=== PATIENT | male | born 1955 | race Caucasian/White ===

== ENCOUNTER 2021-05-29 10:26 | Inpatient (IN) | payer MEDICARE, MEDICAID ==
[2021-05-29 12:10] LABS: CORONAVIRUS COVID-19 NAA POSITIVE (NEGATIVE)
[2021-05-29 14:42] LABS: ANION GAP 17.8 mEq/L (7-13)
[2021-05-29] MEDS ORDERED: Polyethylene Glycol 3350 Powder 17 GM Packet PO PRN (16:16)
[2021-05-29] MEDS ORDERED: Ondansetron 4 MG/2 ML SDV IVPUSH PRN (16:16)
[2021-05-29] MEDS ORDERED: Acetaminophen/oxyCODONE 325-5 MG Tab PO PRN (16:16)
[2021-05-29] MEDS ORDERED: Docusate Sodium 100 MG Cap PO PRN (16:16)
[2021-05-29] MEDS ORDERED: Acetaminophen 325 MG Tab PO PRN (16:16)
[2021-05-29] MEDS ORDERED: Albuterol/Ipratropium 3.0-0.5 MG/3 ML Neb Soln NEB PRN (16:16)
[2021-05-29] MEDS ORDERED: HYDROmorphone 0.5 MG/0.5 ML Syringe IVPUSH PRN (16:16)
[2021-05-29] MEDS ORDERED: guaiFENesin/Dextromethorphan 100-10 MG/5 ML Soln 5 ML Cup PO PRN (16:27)
[2021-05-29] MEDS ORDERED: Sodium Chloride 0.9% 1,000 ML IV SCH (16:30)
[2021-05-29] MEDS ORDERED: 50% Dextrose in Water 50 ML Syringe IVPUSH PRN (16:31)
[2021-05-29] MEDS ORDERED: Glucagon,Human Recombinant 1 MG Vial IM PRN (16:31)
[2021-05-29] MEDS: cefTRIAXone 1 GM in Sodium Chloride 0.9% 50 ML IV SCH (16:39)
[2021-05-29] MEDS: Insulin Lispro 100 Units/ML 3 ML Vial SUBCUT SCH (17:33)
[2021-05-29] MEDS: Azithromycin 500 MG in Sodium Chloride 0.9% 250 ML IV SCH (17:53)
[2021-05-29] MEDS ORDERED: Haloperidol Lactate 5 MG/ML SDV IVPUSH PRN (17:55)
[2021-05-29] MEDS: traZODone 50 MG Tab PO PRN (19:19)
[2021-05-29] MEDS ORDERED: Sodium Chloride 0.9% 500 ML IV SCH (22:15)
[2021-05-29] MEDS: Dexamethasone 4 MG/ML SDV IVPUSH SCH (22:26)
[2021-05-29] MEDS: Enoxaparin 40 MG/0.4 ML Syringe SUBCUT SCH (22:26)
[2021-05-30 07:06] LABS: ANION GAP 14.6 mEq/L (7-13); CHLORIDE,CL 98 mmol/L (98-107); SODIUM,NA 133 mmol/L (136-145)
[2021-05-30] MEDS: Sertraline 50 MG Tab PO SCH (09:12)
[2021-05-30] MEDS: Dexamethasone 4 MG/ML SDV IVPUSH SCH ×2 (09:13→20:46)
[2021-05-30] MEDS: Enoxaparin 40 MG/0.4 ML Syringe SUBCUT SCH ×2 (09:17→20:46)
[2021-05-30] MEDS: Insulin Lispro 100 Units/ML 3 ML Vial SUBCUT SCH ×3 (12:14→17:13)
[2021-05-30] MEDS: cefTRIAXone 1 GM in Sodium Chloride 0.9% 50 ML IV SCH (16:08)
[2021-05-30] MEDS: Azithromycin 500 MG in Sodium Chloride 0.9% 250 ML IV SCH (17:24)
[2021-05-30] MEDS: traZODone 50 MG Tab PO PRN (20:46)
[2021-05-30] MEDS: Haloperidol Lactate 5 MG/ML SDV IVPUSH PRN (22:38)
[2021-05-31 06:53] LABS: CHLORIDE,CL 98 mmol/L (98-107); SODIUM,NA 132 mmol/L (136-145)
[2021-05-31] MEDS: Insulin Lispro 100 Units/ML 3 ML Vial SUBCUT SCH ×3 (09:23→16:46)
[2021-05-31] MEDS: Dexamethasone 4 MG/ML SDV IVPUSH SCH ×2 (09:29→21:10)
[2021-05-31] MEDS: Sertraline 50 MG Tab PO SCH (09:29)
[2021-05-31] MEDS: Enoxaparin 40 MG/0.4 ML Syringe SUBCUT SCH ×2 (09:29→21:09)
[2021-05-31] MEDS: cefTRIAXone 1 GM in Sodium Chloride 0.9% 50 ML IV SCH (16:37)
[2021-05-31] MEDS: Azithromycin 500 MG in Sodium Chloride 0.9% 250 ML IV SCH (17:21)
[2021-05-31] MEDS: Haloperidol Lactate 5 MG/ML SDV IVPUSH PRN (21:10)
[2021-05-31] MEDS: traZODone 50 MG Tab PO PRN (21:10)
[2021-06-01 07:01] LABS: ANION GAP 11.4 mEq/L (7-13); CHLORIDE,CL 101 mmol/L (98-107); SODIUM,NA 136 mmol/L (136-145)
[2021-06-01] MEDS: Insulin Lispro 100 Units/ML 3 ML Vial SUBCUT SCH ×3 (09:56→17:03)
[2021-06-01] MEDS: Enoxaparin 40 MG/0.4 ML Syringe SUBCUT SCH ×2 (09:57→20:27)
[2021-06-01] MEDS: Sertraline 50 MG Tab PO SCH (09:59)
[2021-06-01] MEDS: Dexamethasone 4 MG/ML SDV IVPUSH SCH ×2 (09:59→20:26)
[2021-06-01] MEDS: Haloperidol Lactate 5 MG/ML SDV IVPUSH PRN (16:04)
[2021-06-01] MEDS: cefTRIAXone 1 GM in Sodium Chloride 0.9% 50 ML IV SCH (17:07)
[2021-06-01] MEDS: Azithromycin 500 MG in Sodium Chloride 0.9% 250 ML IV SCH (18:01)
[2021-06-01] MEDS: QUEtiapine 25 MG Tab PO SCH (20:26)
[2021-06-01] MEDS: traZODone 50 MG Tab PO PRN (20:26)
[2021-06-02 07:08] LABS: ANION GAP 11.9 mEq/L (7-13); CHLORIDE,CL 100 mmol/L (98-107); SODIUM,NA 140 mmol/L (136-145)
[2021-06-02] MEDS: Dexamethasone 4 MG/ML SDV IVPUSH SCH (08:23)
[2021-06-02] MEDS: Sertraline 50 MG Tab PO SCH (08:28)
[2021-06-02] MEDS: Enoxaparin 40 MG/0.4 ML Syringe SUBCUT SCH (08:30)
[2021-06-02] MEDS ORDERED: Cholecalciferol (Vitamin D3) 25 MCG Tab PO ONE (10:19)
[2021-06-02] MEDS: Insulin Lispro 100 Units/ML 3 ML Vial SUBCUT SCH ×3 (10:32→17:00)
[2021-06-02] MEDS: Haloperidol Lactate 5 MG/ML SDV IVPUSH PRN (15:05)
[2021-06-02] MEDS: cefTRIAXone 1 GM in Sodium Chloride 0.9% 50 ML IV SCH (15:58)
[2021-06-02] MEDS: Azithromycin 500 MG in Sodium Chloride 0.9% 250 ML IV SCH (16:33)
[2021-06-02] MEDS: QUEtiapine 25 MG Tab PO SCH (21:16)
[2021-06-03] MEDS: Insulin Lispro 100 Units/ML 3 ML Vial SUBCUT SCH ×3 (08:36→17:04)
[2021-06-03] MEDS: Dexamethasone 6 MG TABLET PO SCH (08:41)
[2021-06-03] MEDS: Sertraline 50 MG Tab PO SCH (08:41)
[2021-06-03] MEDS: Enoxaparin 40 MG/0.4 ML Syringe SUBCUT SCH (08:42)
[2021-06-03] MEDS: Haloperidol Lactate 5 MG/ML SDV IVPUSH PRN (16:41)
[2021-06-03] MEDS: cefTRIAXone 1 GM in Sodium Chloride 0.9% 50 ML IV SCH (16:44)
[2021-06-03] MEDS: Azithromycin 500 MG in Sodium Chloride 0.9% 250 ML IV SCH (17:25)
[2021-06-03] MEDS: QUEtiapine 25 MG Tab PO SCH (21:44)
[2021-06-03] MEDS: traZODone 50 MG Tab PO PRN (21:44)
[2021-06-04 07:22] LABS: ANION GAP 11.5 mEq/L (7-13); CHLORIDE,CL 106 mmol/L (98-107); SODIUM,NA 142 mmol/L (136-145)
[2021-06-04] MEDS: Sertraline 50 MG Tab PO SCH (08:53)
[2021-06-04] MEDS: Dexamethasone 6 MG TABLET PO SCH (08:53)
[2021-06-04] MEDS: Insulin Lispro 100 Units/ML 3 ML Vial SUBCUT SCH ×3 (08:54→17:06)
[2021-06-04] MEDS: Enoxaparin 40 MG/0.4 ML Syringe SUBCUT SCH (08:54)
[2021-06-04] MEDS: Haloperidol Lactate 5 MG/ML SDV IVPUSH PRN (10:54)
[2021-06-04] MEDS: cefTRIAXone 1 GM in Sodium Chloride 0.9% 50 ML IV SCH (16:21)
[2021-06-04] MEDS ORDERED: Azithromycin 250 MG Tab PO SCH (17:00)
[2021-06-04] MEDS: QUEtiapine 25 MG Tab PO SCH (21:32)
[2021-06-04] MEDS: traZODone 50 MG Tab PO PRN (21:32)
[2021-06-05 07:01] LABS: CHLORIDE,CL 103 mmol/L (98-107); SODIUM,NA 142 mmol/L (136-145)
[2021-06-05] MEDS: Dexamethasone 6 MG TABLET PO SCH (09:17)
[2021-06-05] MEDS: Enoxaparin 40 MG/0.4 ML Syringe SUBCUT SCH (09:17)
[2021-06-05] MEDS: Sertraline 50 MG Tab PO SCH (09:17)
[2021-06-05] MEDS: Insulin Lispro 100 Units/ML 3 ML Vial SUBCUT SCH ×3 (09:18→16:39)
[2021-06-05] MEDS: Haloperidol Lactate 5 MG/ML SDV IVPUSH PRN ×2 (15:04→21:54)
[2021-06-05] MEDS: cefTRIAXone 1 GM in Sodium Chloride 0.9% 50 ML IV SCH (16:38)
[2021-06-05] MEDS ORDERED: REMDESIVIR 200 MG in Sodium Chloride 0.9% 250 ML IV ONE (18:22)
[2021-06-05] MEDS ORDERED: Water For Injection, Sterile 40 ML ONE (18:58)
[2021-06-05] MEDS: QUEtiapine 25 MG Tab PO SCH (20:13)
[2021-06-06 07:09] LABS: ANION GAP 11.1 mEq/L (7-13); CHLORIDE,CL 109 mmol/L (98-107); SODIUM,NA 142 mmol/L (136-145)
[2021-06-06] MEDS ORDERED: Dexamethasone 4 MG/ML SDV IVPUSH SCH (09:00)
[2021-06-06] MEDS: Insulin Lispro 100 Units/ML 3 ML Vial SUBCUT SCH ×3 (09:07→17:00)
[2021-06-06] MEDS: Enoxaparin 40 MG/0.4 ML Syringe SUBCUT SCH (09:29)
[2021-06-06] MEDS: Dexamethasone 6 MG TABLET PO SCH (09:29)
[2021-06-06] MEDS: Sertraline 50 MG Tab PO SCH (09:29)
[2021-06-06] MEDS: Haloperidol Lactate 5 MG/ML SDV IVPUSH PRN (16:11)
[2021-06-06] MEDS: cefTRIAXone 1 GM in Sodium Chloride 0.9% 50 ML IV SCH (16:14)
[2021-06-06] MEDS: REMDESIVIR 100 MG in Sodium Chloride 0.9% 100 ML IV SCH (17:47)
[2021-06-06] MEDS: traZODone 50 MG Tab PO PRN (20:31)
[2021-06-06] MEDS: QUEtiapine 25 MG Tab PO SCH (20:31)
[2021-06-07 07:01] LABS: ANION GAP 9.8 mEq/L (7-13); CHLORIDE,CL 107 mmol/L (98-107); SODIUM,NA 139 mmol/L (136-145)
[2021-06-07] MEDS: Sertraline 50 MG Tab PO SCH (09:27)
[2021-06-07] MEDS: Enoxaparin 40 MG/0.4 ML Syringe SUBCUT SCH (09:27)
[2021-06-07] MEDS: Dexamethasone 6 MG TABLET PO SCH (09:27)
[2021-06-07] MEDS: Insulin Lispro 100 Units/ML 3 ML Vial SUBCUT SCH ×3 (09:28→17:46)
[2021-06-07] MEDS ORDERED: Haloperidol 1 MG Tab PO PRN (10:37)
[2021-06-07] MEDS: cefTRIAXone 1 GM in Sodium Chloride 0.9% 50 ML IV SCH (16:35)
[2021-06-07] MEDS: REMDESIVIR 100 MG in Sodium Chloride 0.9% 100 ML IV SCH (18:27)
[2021-06-07] MEDS: QUEtiapine 25 MG Tab PO SCH (20:01)
[2021-06-07] MEDS: traZODone 50 MG Tab PO PRN (20:01)
[2021-06-08 07:19] LABS: ANION GAP 10.9 mEq/L (7-13); CHLORIDE,CL 105 mmol/L (98-107); SODIUM,NA 137 mmol/L (136-145)
[2021-06-08] MEDS: Enoxaparin 40 MG/0.4 ML Syringe SUBCUT SCH (08:07)
[2021-06-08] MEDS: Sertraline 50 MG Tab PO SCH (08:07)
[2021-06-08] MEDS: Dexamethasone 6 MG TABLET PO SCH (08:07)
[2021-06-08] MEDS: Insulin Lispro 100 Units/ML 3 ML Vial SUBCUT SCH ×3 (08:08→17:38)
[2021-06-08] MEDS ORDERED: REMDESIVIR 100 MG in Sodium Chloride 0.9% 100 ML IV SCH (12:00)
[2021-06-08] MEDS: cefTRIAXone 1 GM in Sodium Chloride 0.9% 50 ML IV SCH (15:58)
[2021-06-08] MEDS: QUEtiapine 25 MG Tab PO SCH (20:19)
[2021-06-08] MEDS: traZODone 50 MG Tab PO PRN (20:19)
[2021-06-09 07:03] LABS: ANION GAP 10.1 mEq/L (7-13); CHLORIDE,CL 104 mmol/L (98-107); SODIUM,NA 136 mmol/L (136-145)
[2021-06-09] MEDS: Insulin Lispro 100 Units/ML 3 ML Vial SUBCUT SCH (08:14)
[2021-06-09] MEDS: Sertraline 50 MG Tab PO SCH (08:29)
[2021-06-09] MEDS: Enoxaparin 40 MG/0.4 ML Syringe SUBCUT SCH (08:29)
[2021-06-09] MEDS: Dexamethasone 6 MG TABLET PO SCH (08:29)
[2021-06-09] MEDS ORDERED: REMDESIVIR 100 MG in Sodium Chloride 0.9% 100 ML IV SCH (09:00)
== END 2021-06-09 11:15 | DRG 871 ==
LOC: DL.ED 10:26 → DL.MS 15:50
PROVIDERS: ADMIT Internal Medicine; ATTEND Internal Medicine
PROC: 3E0333Z Introduction of Anti-inflammatory into Peripheral Vein, Percutaneous Approach (ICD-10-PCS; 2021-06-02)
PROC: XW033E5 Introduction of Remdesivir Anti-infective into Peripheral Vein, Percutaneous Approach, New Technology Group 5 (ICD-10-PCS; 2021-06-08)
PROC: 3E02340 Introduction of Influenza Vaccine into Muscle, Percutaneous Approach (ICD-10-PCS; principal; 2021-06-09)
DX: A40.3 Sepsis due to Streptococcus pneumoniae (principal); R06.02 Shortness of breath; J45.909 Unspecified asthma, uncomplicated; F10.10 Alcohol abuse, uncomplicated; Y90.9 Presence of alcohol in blood, level not specified; U07.1 COVID-19; J96.01 Acute respiratory failure with hypoxia; J12.82 Pneumonia due to coronavirus disease 2019; J15.4 Pneumonia due to other streptococci; J44.0 Chronic obstructive pulmonary disease with (acute) lower respiratory infection; A08.39 Other viral enteritis; E87.1 Hypo-osmolality and hyponatremia; N17.9 Acute kidney failure, unspecified; E87.2 Acidosis; R64 Cachexia; Z68.1 Body mass index [BMI] 19.9 or less, adult; Z66 Do not resuscitate; H54.7 Unspecified visual loss; M19.90 Unspecified osteoarthritis, unspecified site; R53.1 Weakness; Z96.653 Presence of artificial knee joint, bilateral; F32.A Depression, unspecified; G47.00 Insomnia, unspecified; E87.8 Other disorders of electrolyte and fluid balance, not elsewhere classified; R73.9 Hyperglycemia, unspecified; E88.09 Other disorders of plasma-protein metabolism, not elsewhere classified; E55.9 Vitamin D deficiency, unspecified; Z23 Encounter for immunization; I69.30 Unspecified sequelae of cerebral infarction; Z79.899 Other long term (current) drug therapy; Z99.3 Dependence on wheelchair
CPT/HCPCS: 0240U; 36415; 71045; 80048; 80053; 80076; 82306; 82728; 82947; 83605; 83735; 84484; 85025; 85027; 85379; 85610; 85651; 86140; 87040; 87070; 87077; 87186; 87205; 90686; 92610; 93005; 93010; 97110; 97116; 97161; 97166; 97530; 99223; 99232; 99233; 99239; 99284; 99285; A9270-GY; G0008; J0248; J0456; J0696; J1100; J1630; J1650; J1815-GY; J7030; J7040; J7050; J8540